=== PATIENT | female | born 1970 | race Hispanic/Latino ===

== ENCOUNTER 2020-04-16 15:11 | Emergency (ER) | payer SELFPAY ==
--- NOTE | 2020-04-16 16:11 | CT ---
CT abdomen and pelvis noncontrast HISTORY: Right flank pain. Hematuria. FINDINGS: There is mild distention of the right renal collecting system with a well-circumscribed 1.8 cm x 1.7 cm oval calcification at the ureteropelvic junction. The proximal right ureter is slightly distended with gradual transition to decompressed caliber at the mid ureter. No sharp transi tional zone of caliber is evident. The left renal collecting system and ureter are decompressed without stone apparent. Gallbladder surgically absent. Liver is diffusely hypodense. Lack of contrast limits evaluation of the soft tissues. Projecting posterolaterally from the inferior pole right kidney is a well-circumscribed 1.2 cm low-density lesion favored to represent an exophytic cyst. Diverticula arise from the colon without adjacent inflammation. At the expected location of the right adnexa is an oval 3.5 cm well-circumscribed lesion of fluid den sity anteriorly internal fluid fluid level, slightly hyperdense material in the dependent portion. No free fluid in the pelvis. IMPRESSION : Partial/intermittent obstruction at a 1.8 cm right renal pelvis calculus. Hemorrhagic right ovarian cyst 3.5 cm. Hepato-steatosis. Diverticulosis. No evidence of diverticulitis.
[2020-04-16 16:12] LABS: #Basophils 0.1 thou/uL (0.0-0.2); #Eosinphils 0.1 thou/uL (0.0-0.7); #Lymphocytes 2.3 thou/uL (1.20-3.40); #Monocytes 0.5 thou/uL (0.11-0.59); #Neutrophils 4.3 thou/uL (1.40-6.50); %Basophils 1.1 % (0.0-1.0); %Eosinophils 1.4 % (0.0-10.0); %Lymphocytes 31.5 % (21.0-51.0); %Monocytes 7.2 % (0.0-10.0); %Neutrophils 58.8 % (42.0-75.0); Hemoglobin 12.8 g/dL (12.0-16.0); Mean Corpuscular HGB CONC 32.2 g/dL (32.0-36.0); Mean Corpuscular Hemoglobin 31.7 pg (27.0-31.0); Mean Corpuscular Volume 98.5 fL (78.0-98.0); Mean Platelet Volume 7.8 fL (7.4-10.4); Platelet Count 653 thou/uL (130-400); RBC Distribution Width 13.8 % (11.5-14.5); Red Blood Cell (RBC) Count 4.03 mill/uL (4.20-5.40); White Blood Cell (WBC) Count 7.3 thou/uL (4.8-10.8)
[2020-04-16 16:27] LABS: BHCG - Serum Negative (NEGATIVE); Pregs Control Bar Appear? YES (CONTROL BAR)
[2020-04-16 16:29] LABS: ALT (SGPT) 31 U/L (8-55); AST (SGOT) 21 U/L (5-34); Albumin 4.2 g/dL (3.5-5.0); Alkaline Phosphatase 75 U/L (40-110); Anion Gap 15 mmol/L (10-20); BUN (Urea Nitrogen) 20 mg/dL (7.0-18.7); Bilirubin, Total 0.3 mg/dL (0.2-1.2); Calc. Creatinine Clearance 0 mL/min (70-130); Calcium 9.2 mg/dL (7.8-10.44); Carbon Dioxide 25 mmol/L (22-29); Chloride 100 mmol/L (98-107); Estimated GFR-MDRD 81; Globulin 2.8 g/dL (2.4-3.5); Glucose 190 mg/dL (70-105); Lipase 22 U/L (8-78); Potassium 3.6 mmol/L (3.5-5.1); Sodium 136 mmol/L (136-145)
[2020-04-16 16:37] LABS: Bilirubin Negative (Negative); Blood, Urine Large (Negative); Clarity Clear (Clear); Glucose, Urine (Dipstick) 500 mg/dL (Negative); Ketone, Urine Negative (Negative); Leukocyte Small (Negative); Nitrite Negative (Negative); Protein, Urine (Dipstick) 100 mg/dL (Neg-Trace); Urobilinogen 0.2 mg/dL (Less than 2); pH, Urine 5.5 (5.0-9.0)
[2020-04-16 16:43] LABS: Bacteria/HPF None Seen HPF (None Seen); RBC/HPF Greater than 50 HPF (0-3); WBC/HPF 21-50 HPF (0-3)
[2020-04-16] MEDS ORDERED: Sodium Chloride 0.9% 1,000 ML ONE (17:13)
== END 2020-04-16 19:05 | disposition short-term general hospital (02) ==
LOC: NAV ERS 15:11
DX: N20.0 Calculus of kidney (principal); E11.9 Type 2 diabetes mellitus without complications; Z87.891 Personal history of nicotine dependence; Z79.84 Long term (current) use of oral hypoglycemic drugs; Z79.899 Other long term (current) drug therapy
CPT/HCPCS: 74176; 80053; 81003; 81015; 83690; 84703; 85025; 87086; 96374; J7050